=== PATIENT | male | born 1965 | race Caucasian/White ===

== ENCOUNTER 2024-05-30 11:28 | Day surgery (SDC) | payer BC, OTHER ==
[~2024-05-30 11:28] MED LIST: Metoclopramide 10 MG/2 ML SDV IV PRN
[2024-05-30] MEDS: Sodium Chloride 0.9% 1,000 ML IV SCH (11:52)
[2024-05-30] MEDS ORDERED: Propofol 500 MG/50 ML SDV ONE (12:15)
== END 2024-05-30 12:51 | disposition home or self-care (01) ==
LOC: LB.SDS 11:28
PROVIDERS: ATTEND Surgery
DX: Z12.11 Encounter for screening for malignant neoplasm of colon (principal); R19.5 Other fecal abnormalities; D12.6 Benign neoplasm of colon, unspecified; K63.5 Polyp of colon; I10 Essential (primary) hypertension; E78.5 Hyperlipidemia, unspecified; Z79.899 Other long term (current) drug therapy; Z88.0 Allergy status to penicillin; Z91.013 Allergy to seafood
CPT/HCPCS: 45385; 88305; J2704; J7030